=== PATIENT | female | born 1975 | race Caucasian/White ===

== ENCOUNTER 2018-09-22 11:00 | Inpatient (IN) | payer MEDICARE ==
[2018-09-21 15:50] VITALS: BMI 29.3
[2018-09-22 12:10] LABS: #Eosinphils 0.1 thou/uL (0.0-0.7); #Monocytes 0.5 thou/uL (0.11-0.59); %Basophils 0.2 % (0.0-1.0); %Eosinophils 0.6 % (0.0-10.0); %Lymphocytes 11.1 % (21.0-51.0); %Monocytes 5.9 % (0.0-10.0); %Neutrophils 82.2 % (42.0-75.0); Hemoglobin 13.2 g/dL (12.0-16.0); Mean Corpuscular HGB CONC 32.9 g/dL (32.0-36.0); Mean Corpuscular Volume 88.1 fL (78.0-98.0); Mean Platelet Volume 9.2 fL (7.4-10.4); Platelet Count 210 thou/uL (130-400); RBC Distribution Width 11.6 % (11.5-14.5); Red Blood Cell (RBC) Count 4.53 mill/uL (4.20-5.40); White Blood Cell (WBC) Count 8.5 thou/uL (4.8-10.8)
[2018-09-22] MEDS ORDERED: cefOXitin Sodium/Dextrose,Iso 2 GM in Premix Bag 1 BAG IVPB SCH (12:30)
[2018-09-22] MEDS ORDERED: Bupivacaine/Epinephrine 0.25% 30 ML VIAL ONE (12:33)
[2018-09-22 12:47] LABS: ALT (SGPT) 11 U/L (8-55); AST (SGOT) 13 U/L (5-34); Albumin 4.4 g/dL (3.5-5.0); Alkaline Phosphatase 64 U/L (40-150); Anion Gap 13 mmol/L (10-20); BUN (Urea Nitrogen) 11 mg/dL (7.0-18.7); Bilirubin, Total 0.5 mg/dL (0.2-1.2); Calc. Creatinine Clearance 132 mL/min (70-130); Calcium 9.4 mg/dL (7.8-10.44); Carbon Dioxide 21 mmol/L (22-29); Chloride 106 mmol/L (98-107); Estimated GFR-MDRD 82; Globulin 2.7 g/dL (2.4-3.5); Glucose 87 mg/dL (70-105); Potassium 3.7 mmol/L (3.5-5.1); Protein, Total 7.1 g/dL (6.0-8.3); Sodium 136 mmol/L (136-145)
[2018-09-22] MEDS ORDERED: Fentanyl 100 MCG/2 ML VIAL ONE ×2 (13:13→14:35)
[2018-09-22] MEDS ORDERED: Ondansetron PF 4 MG/2 ML Vial IVP PRN (14:14)
[2018-09-22] MEDS ORDERED: Mag-Al 1200 mg/1200 mg/30 ML UDCUP PO PRN (14:14)
[2018-09-22] MEDS ORDERED: Promethazine HCl 25 MG/ML VIAL IM PRN ×2 (14:14→14:44)
[2018-09-22] MEDS ORDERED: Dextrose 50% Abboject 50 ML SYRINGE SLOW IVP PRN (14:14)
[2018-09-22] MEDS ORDERED: Dextrose 5% in Water 1,000 ML IV PRN (14:14)
[2018-09-22] MEDS ORDERED: Morphine 4 MG/ML VIAL SLOW IVP PRN ×2 (14:14)
[2018-09-22] MEDS ORDERED: hydrALAZINE 20 MG/ML VIAL SLOW IVP PRN (14:14)
[2018-09-22] MEDS ORDERED: HYDROcodone/Acetaminophen 10/325 mg Tablet PO PRN (14:14)
[2018-09-22] MEDS ORDERED: Calcium Carbonate 500 MG ChewTAB PO PRN (14:14)
[2018-09-22] MEDS ORDERED: Promethazine HCl 25 MG/ML VIAL ONE (14:28)
[2018-09-22] MEDS ORDERED: Ondansetron HCl/PF 4 MG/2 ML Vial IVP PRN (14:44)
[2018-09-22] MEDS ORDERED: Promethazine HCl 25 MG/ML VIAL SLOW IVP PRN (14:44)
[2018-09-22] MEDS ORDERED: Rocuronium Bromide 10 MG/ML (10ML VIAL) ONE (15:20)
[2018-09-22] MEDS ORDERED: PROPOFOL 200 MG/20 ML VIAL ONE (15:20)
[2018-09-22] MEDS ORDERED: Ondansetron PF 4 MG/2 ML Vial ONE (15:20)
[2018-09-22] MEDS ORDERED: Ketorolac Tromethamine 30 MG/ML VIAL ONE (15:20)
[2018-09-22] MEDS ORDERED: Lidocaine 1% PF 5 ML VIAL ONE (15:20)
[2018-09-22] MEDS ORDERED: Hydrocortisone Sod Succ/PF 100 mg/2 ml Vial ONE (15:20)
[2018-09-22] MEDS ORDERED: Dexamethasone 20 MG/5 ML VIAL ONE (15:20)
[2018-09-22] MEDS ORDERED: Glycopyrrolate 0.2 MG/ML 5 ML SYRINGE ONE (15:20)
[2018-09-22] MEDS: D5 1/2 NS w/20 mEq KCL 1,000 ML IV SCH ×2 (16:11→20:08)
[2018-09-22] MEDS: Ketorolac Tromethamine 30 MG/ML VIAL IVP SCH ×2 (17:02→23:29)
[2018-09-22 20:01] LABS: #Lymphocytes 0.6 thou/uL (1.20-3.40); #Monocytes 0.2 thou/uL (0.11-0.59); #Neutrophils 12.3 thou/uL (1.40-6.50); %Eosinophils 0.1 % (0.0-10.0); %Lymphocytes 4.4 % (21.0-51.0); %Monocytes 1.5 % (0.0-10.0); %Neutrophils 93.9 % (42.0-75.0); Hemoglobin 12.9 g/dL (12.0-16.0); Mean Corpuscular HGB CONC 34.3 g/dL (32.0-36.0); Mean Corpuscular Hemoglobin 30.4 pg (27.0-31.0); Mean Corpuscular Volume 88.6 fL (78.0-98.0); Mean Platelet Volume 8.8 fL (7.4-10.4); Platelet Count 203 thou/uL (130-400); RBC Distribution Width 11.6 % (11.5-14.5); Red Blood Cell (RBC) Count 4.24 mill/uL (4.20-5.40); White Blood Cell (WBC) Count 13.1 thou/uL (4.8-10.8)
[2018-09-22] MEDS: Famotidine 20 MG TAB PO SCH (20:04)
[2018-09-22] MEDS: HYDROcodone/Acetaminophen 10/325 mg Tablet PO PRN (20:04)
[2018-09-22] MEDS: Famotidine/PF 20 mg/2ml Vial SLOW IVP SCH (20:04)
[2018-09-23] MEDS: D5 1/2 NS w/20 mEq KCL 1,000 ML IV SCH (04:36)
[2018-09-23] MEDS: Ketorolac Tromethamine 30 MG/ML VIAL IVP SCH ×2 (05:51→11:29)
[2018-09-23 07:09] LABS: #Lymphocytes 1.3 thou/uL (1.20-3.40); #Monocytes 1.2 thou/uL (0.11-0.59); #Neutrophils 11.8 thou/uL (1.40-6.50); %Basophils 0.1 % (0.0-1.0); %Eosinophils 0.1 % (0.0-10.0); %Lymphocytes 8.9 % (21.0-51.0); %Monocytes 8.7 % (0.0-10.0); %Neutrophils 82.2 % (42.0-75.0); Hemoglobin 11.8 g/dL (12.0-16.0); Mean Corpuscular HGB CONC 33.5 g/dL (32.0-36.0); Mean Corpuscular Hemoglobin 30.1 pg (27.0-31.0); Mean Corpuscular Volume 90.1 fL (78.0-98.0); Mean Platelet Volume 9.2 fL (7.4-10.4); Platelet Count 188 thou/uL (130-400); RBC Distribution Width 11.7 % (11.5-14.5); Red Blood Cell (RBC) Count 3.92 mill/uL (4.20-5.40); White Blood Cell (WBC) Count 14.4 thou/uL (4.8-10.8)
[2018-09-23 07:31] LABS: ALT (SGPT) 20 U/L (8-55); AST (SGOT) 22 U/L (5-34); Albumin 3.5 g/dL (3.5-5.0); Alkaline Phosphatase 53 U/L (40-150); Anion Gap 12 mmol/L (10-20); BUN (Urea Nitrogen) 9 mg/dL (7.0-18.7); Bilirubin, Total 0.4 mg/dL (0.2-1.2); Calc. Creatinine Clearance 139 mL/min (70-130); Calcium 8.5 mg/dL (7.8-10.44); Carbon Dioxide 21 mmol/L (22-29); Chloride 106 mmol/L (98-107); Estimated GFR-MDRD 87; Globulin 2.3 g/dL (2.4-3.5); Glucose 111 mg/dL (70-105); Lipase 14 U/L (8-78); Potassium 3.9 mmol/L (3.5-5.1); Protein, Total 5.8 g/dL (6.0-8.3); Sodium 135 mmol/L (136-145)
[2018-09-23] MEDS: Famotidine 20 MG TAB PO SCH (08:32)
[2018-09-23] MEDS: Famotidine/PF 20 mg/2ml Vial SLOW IVP SCH (08:33)
--- NOTE | 2018-09-23 10:38 | OP ---
DATE OF PROCEDURE: 09/22/2018 PREOPERATIVE DIAGNOSIS: Chronic cholecystitis with history of von Willebrand disease. PROCEDURE PERFORMED: Laparoscopic cholecystectomy. INDICATIONS: This is a 42-year-old female who has been diagnosed with von Willebrand disease and has been having severe right upper quadrant pain, worse after eating, radiating to back. Ultrasound negative. HIDA scan showed a low ejection fraction. She was seen by Hematology preoperatively, they ran tests. Her von Willebrand factor was even above normal, so they did not recommend any prophylaxis. FINDINGS: Very minimal bleeding. No complications. A small caliber cystic duct. DESCRIPTION OF PROCEDURE: After informed consent was obtained, the patient was taken to the operating room and given general endotracheal anesthesia, placed in the supine position. Abdomen was prepped and draped in usual fashion. Local anesthesia infiltrated subcutaneously and deep. A subumbilical incision was performed. Subcu divided sharply. The fascia grasped. Two stay sutures of 0 Vicryl placed in each side of midline. Midline incised. Digital palpation revealed no local adhesions. A blunt 10/12 mm trocar inserted. Pneumoperitoneum was created to a pressure of 15 mmHg. A 0-degree laparoscope was inserted under direct vision. Three 5 mm ports were placed subcostally. Gallbladder was grasped and advanced superiorly. There was evidence of some adhesions to the gallbladder wall. These were taken down utilizing electrocautery. The peritoneum opened and the cystic duct and artery were dissected out as well as the critical view. The artery and duct were triply ligated with hemoclips and divided. The gallbladder removed from its fossa utilizing electrocautery, removed from the abdomen through the umbilical port. Hemostasis assured. The wound irrigation fluid removed. Trocars and retractors removed. The fascia was closed with interrupted 0 Vicryl suture. The skin was closed with interrupted 4-0 Rapide. Dermabond applied. The patient tolerated the procedure well, transferred to Recovery in good condition. Sponge and needle counts verified and correct x2. Job ID: [id number]
[2018-09-23] MEDS: HYDROcodone/Acetaminophen 10/325 mg Tablet PO PRN (11:33)
[2018-09-23 12:08] VITALS: BP 128/81; TEMP 98.5
--- NOTE | 2018-09-24 03:40 | DIS ---
DATE OF ADMISSION: 09/22/2018 DATE OF DISCHARGE: 09/23/2018 DISCHARGE DIAGNOSES: Chronic cholecystitis, history of von Willebrand's disease. PROCEDURES DURING ADMISSION: Laparoscopic cholecystectomy. HOSPITAL COURSE: The patient was admitted, taken to the operating room where she underwent a laparoscopic cholecystectomy. There was very minimal blood loss. Postoperatively, she did well. We did follow her H and H. Hemoglobin did drop, but she received quite a bit of hydration. She is currently saying that she is having no pain. She is eating a regular diet. No nausea or vomiting. The incisions are healing well. There is no evidence of bleeding or infection. She is being discharged home in good condition on hydrocodone and Zofran. She will follow up with me in 2 weeks. Job ID: [id number]
== END 2018-09-23 12:50 | disposition home or self-care (01) | DRG 418 ==
LOC: SURG A 11:00
PROVIDERS: ADMIT Surgery; ATTEND Surgery
PROC: 0FT44ZZ Resection of Gallbladder, Percutaneous Endoscopic Approach (ICD-10-PCS; principal; 2018-09-22)
DX: K81.1 Chronic cholecystitis (principal); D68.0 Von Willebrand disease
CPT/HCPCS: 36415; 80053; 83690; 85025; 86850; 86900; 86901; 88304; J1100; J1720; J1885; J2001; J2405; J2550; J2704; J3010

== ENCOUNTER 2019-01-12 09:34 | Outpatient (CLI) | payer MEDICARE ==
[2019-01-12] MEDS ORDERED: ISOVUE-370 76%-LOCM 1 ML ONE (10:48)
--- NOTE | 2019-01-12 11:01 | CT ---
CT Chest W Con HISTORY: Right-sided chest pain pain directly beneath the breast. History of rheumatoid arthritis. COMPARISON: None. FINDINGS: The lungs are clear of any infiltrative process. There is no signs any type of interstitial lung disease. There are no pulmonary nodules or pleural effusions. There is no significant mediastinal, hilar or axillary lymphadenopathy the thoracic aorta is normal i n caliber the thyroid gland is normal in appearance. Review of osseous structures show minimal osteophytic changes of the spine. No rib or sternal abnorma lities. The visualized liver parenchyma is normal. The gallbladder is been removed. No fluid collections. IMPRESSION: Unremarkable CT of the chest.
== END 2019-01-12 09:35 | disposition home or self-care (01) ==
LOC: BICCT 09:34
PROVIDERS: ATTEND Internal Medicine Gastroenterology
DX: K82.8 Other specified diseases of gallbladder (principal); R07.89 Other chest pain; R19.4 Change in bowel habit; M06.9 Rheumatoid arthritis, unspecified
CPT/HCPCS: 36415; 71260; 77063; 77067; 80053; 82306; 83036; 84439; 84443; Q9966